=== PATIENT | male | born 1995 | race Caucasian/White ===

== ENCOUNTER 2017-08-26 15:04 | Emergency (ER) | payer MEDICAID ==
[~2017-08-26] VITALS: Ht 165.1 cm; Wt 59.0 kg
[2017-08-26 15:08] VITALS: BP 131/84; Ht 165.1 cm; Wt 59.0 kg
== END 2017-08-26 16:23 | disposition home or self-care (01) ==
LOC: ED 15:04
DX: L03.211 Cellulitis of face (principal)